=== PATIENT | female | born 1975 | race Caucasian/White ===

== ENCOUNTER 2020-09-04 11:09 | Outpatient (CLI) | payer OTHER ==
[~2020-09-04 11:09] MED LIST: PERCOCET 5/3251 TAB PO
== END 2020-09-04 11:35 | disposition home or self-care (01) ==
LOC: MAMO-SONO 11:09
PROVIDERS: ATTEND Specialist
DX: Z12.31 Encounter for screening mammogram for malignant neoplasm of breast (principal); M25.572 Pain in left ankle and joints of left foot; M25.571 Pain in right ankle and joints of right foot; E08.8 Diabetes mellitus due to underlying condition with unspecified complications

== ENCOUNTER 2020-09-12 09:42 | Outpatient (CLI) | payer OTHER | END 2020-09-12 10:09 | disposition home or self-care (01) | LOC: NUCLEAR 09:42 | PROVIDERS: ATTEND Specialist | DX: I73.9 Peripheral vascular disease, unspecified (principal); M79.606 Pain in leg, unspecified ==

== ENCOUNTER 2020-09-13 09:43 | Outpatient (CLI) | payer OTHER | END 2020-09-13 09:46 | disposition home or self-care (01) | LOC: NUCLEAR 09:43 | PROVIDERS: ATTEND Specialist | DX: I73.9 Peripheral vascular disease, unspecified (principal); M79.606 Pain in leg, unspecified ==

== ENCOUNTER 2021-03-17 12:12 | Outpatient (CLI) | payer OTHER | END 2021-03-17 12:31 | disposition home or self-care (01) | LOC: SONOGRAMA 12:12 | PROVIDERS: ATTEND Surgery | DX: D24.2 Benign neoplasm of left breast (principal); N60.12 Diffuse cystic mastopathy of left breast; N60.11 Diffuse cystic mastopathy of right breast ==